=== PATIENT | male | born 1980 | race Caucasian/White ===

== ENCOUNTER 2024-01-15 23:45 | Emergency (ER) | payer OTHER, SELFPAY ==
[2024-01-15 23:48] VITALS: BP 127/68
[2024-01-16 00:23] VITALS: BMI 28.5
--- NOTE | 2024-01-16 00:25 | ED.GENMED ---
History of Present Illness
General
Chief Complaint: Musculo-Skeletal Complaint
Source: patient
Exam Limitations: none
Time Seen by Provider: 01/16/24 00:15
History of Present Illness
History of Present Illness:
See MDM
Past History
Past History
ED Past Medical History: None
ED Past Surgical History: Other (ENT)
Phy Exam
Physical Exam
Physical Exam:
See MDM
Course
Orders/Labs/Results
Orders:
Orders
01/16/24 00:24
US Periph Venous LOWER Ext LT Urgent
Comment:
Reason For Exam: left calf and posterior knee pain
Vital Signs
Initial and Last Documented VS:
Initial Vital Signs
Temp Pulse Resp BP Pulse Ox
98.0 F 76 19 127/68 96
01/15/24 23:48 01/15/24 23:48 01/15/24 23:48 01/15/24 23:48 01/15/24 23:48
Last Documented Vital Signs
Temp Pulse Resp BP Pulse Ox
98.0 F 76 19 127/68 96
01/15/24 23:48 01/15/24 23:48 01/15/24 23:48 01/15/24 23:48 01/15/24 23:48
MDM/Problems Addressed
Differential Diagnosis Includes:
HPI and MDM Narrative:
43-year-old male presenting with left knee and calf swelling. This been ongoing for the past couple days. Does hurt with weightbearing. He denies any trauma. Patient is concerned about possible DVT. On exam, he points to left lateral knee pain.
There is no effusion or skin changes. He has mild tenderness to palpation of the popliteal fossa. He has no calf tenderness or swelling. He points to the lateral calf erythema and it was appears that something was resting on his leg. There is
no demarcated borders to suggest cellulitis. There is no pain with palpation to the questionable erythema. Extremities otherwise neurovascularly intact. Given no trauma, was escalated to leave for x-ray. Patient agrees. Will ultrasound rule out
DVT versus possible Velásquez's cyst.
Physical exam
General: Well appearing and non-toxic
HEENT: protecting airway
Neck: appears supple
CV: No evidence of cyanosis
Resp: No accessory muscle use
Abd: Non-distended
Extremities: No deformities. Mild tenderness to popliteal fossa. Distal extremity neurovascular intact. No effusion. Knee stable to varus and valgus stress. Negative David's test.
Neuro: alert
Psych: Normal affect
Skin: Intact
Problems Addressed including Acute and Chronic Conditions affecting care:
1. Left knee and calf pain
Acuity: acute
Prognosis: stable
Details: Discussed likely strain versus Velásquez's cyst. Will obtain ultrasound rule DVT.
Updates
12:50 AM paper plate machine tender indicating ultrasound is negative
We discussed the possibility of ligamentous injury or possibly a small ruptured Velásquez's cyst that ultrasound is not picking up. Regardless, we discussed follow-up with orthopedist to discuss MRI
Differential Diagnosis (but not limited to): Velásquez's cyst, DVT, meniscal injury
Testing considered: X-ray but there is no bony tenderness
Drug therapy (if applicable): OTC meds, please see d/c instruction regarding Rx drugs
Amount and/or Complexity of Data Reviewed
Clinical info obtained from: Patient
External data reviewed: N/A
Labs I independently reviewed (but not limited to): N/A
Radiology: Ultrasound report normal
Pulse Ox: not hypoxic
EKG independently reviewed: N/A
Gauge Checker: N/A
Critical Care: N/A
Risk of Complication:
Social Determinants of health: Good social support
Discussed with other providers: N/A
Escalation of Care includes Admit/Obs: After being observed in the Emergency Department, pt stable for discharge.
Occasional wrong word or 'sound a like' substitutions may have occurred due to the inherent limitations of voice recognition software. Read the chart carefully and recognize, using context, where substitutions have occurred.
*Critical Care Note
Total Time (30-74mins, 75-104mins- exclusive of procedures): Not Applicable
ED Attending Note
-
Portions of this chart may have been created with voice recognition software.� Occasional wrong word or��sound alike� substitutions may have occurred due to the inherent limitations of voice recognition software.
Discharge Plan
Departure
Patient Disposition: Home (Routine Discharge)
Date of Disposition: 01/16/24
Time of Disposition: 01:12
Patient with high blood pressure during this ER visit?: No
Discharge Problem:
Acute knee pain
Referrals:
Chava Rubalcava MD [Active] -
NONE,* [Family Provider] -
Activity Restrictions/Additional Instructions:
As we discussed, there is a possibility of a ligament injury in your knee and possibly a small ruptured Velásquez's cyst that the ultrasound is not picking up. Regardless, there is no evidence of a blood clot. Please make an appointment to see the
orthopedist to discuss MRI.
Please return for any worsening symptoms.
You may return at any time if you have further concerns.
Please follow up with your doctor at the first available appointment, preferably this week.
Thank you for choosing [facility].
Interventions
Interventions:
*Risk Screen - Suicide Last Done: 01/15/24 23:48
*General Assessment Last Done: 01/15/24 23:48
*Neglect/Abuse Screening Last Done: 01/15/24 23:48
ED- Fall Risk Assessment Last Done: 01/16/24 00:18
*ED COVID-19 Vaccine History Last Done: 01/15/24 23:48
ED-Musculoskeletal Assessment Last Done: 01/16/24 00:16
Discharge Date and Time
Print Language: WOLOF
== END 2024-01-16 01:15 | disposition home or self-care (01) ==
LOC: EMR 23:45
PROVIDERS: EMERGENCY PHYSICIAN Student in an Organized Health Care Education/Training Program
DX: M25.562 Pain in left knee (principal)
CPT/HCPCS: 99284; 93971